=== PATIENT | male | born 1945 | race Two or more races ===

== ENCOUNTER 2017-10-04 12:35 | Emergency (ER) | payer MEDICARE ==
[2017-10-04 13:01] LABS: ADD MAN DIFF? NO
[2017-10-04 13:05] LABS: BASO # 0.1 x10^3/uL (0.0-0.2); BASO % 1 % (0-3); EOS # 0.1 x10^3/uL (0.0-0.7); EOS % 1 % (0-3); HEMATOCRIT 43.9 % (39.0-53.0); HEMOGLOBIN 15.1 g/dL (13.0-17.5); LYMPH % 27 % (24-48); MEAN CORPUSCULAR HEMOGLOBIN 32 pg (25-35); MEAN CORPUSCULAR HGB CONC 34 g/dL (31-37); MEAN CORPUSCULAR VOLUME 92 fL (79-100); MONO # 0.5 x10^3/uL (0.0-1.1); MONO % 7 % (0-9); NEUT # 4.8 x10^3uL (1.8-7.7); NEUT % 64 % (31-73); PLATELET COUNT 212 x10^3/uL (140-400); RED BLOOD COUNT 4.77 x10^6/uL (4.30-5.70); RED CELL DISTRIBUTION WIDTH 13.1 % (11.5-14.5); WHITE BLOOD COUNT 7.5 x10^3/uL (4.0-11.0)
[2017-10-04 13:15] LABS: INR 0.9 (0.8-1.1); PROTHROMBIN TIME PATIENT 11.9 SEC (11.7-14.0)
[2017-10-04 13:17] LABS: ANION GAP 8 (6-14); BLOOD UREA NITROGEN 20 mg/dL (8-26); BUN/CREATININE RATIO 20 (6-20); CALCIUM 8.5 mg/dL (8.5-10.1); CARBON DIOXIDE 26 mmol/L (21-32); CHLORIDE 101 mmol/L (98-107); GFR 73.2; GLUCOSE 261 mg/dL (70-99); POTASSIUM 4.8 mmol/L (3.5-5.1); SODIUM 135 mmol/L (136-145)
[2017-10-04 13:20] LABS: POC GLUCOSE 268 mg/dL (70-99)
[2017-10-04 13:23] LABS: ALBUMIN 3.1 g/dL (3.4-5.0); ALBUMIN/GLOBULIN RATIO 0.8 (1.0-1.7); ALK PHOS 126 U/L (46-116); MAGNESIUM 1.9 mg/dL (1.8-2.4); TOTAL BILIRUBIN 0.5 mg/dL (0.2-1.0); TOTAL PROTEIN 7.1 g/dL (6.4-8.2)
[2017-10-04 13:26] LABS: TROPONINI < 0.017 ng/mL (0.000-0.055)
[2017-10-04] MEDS: IV NORMAL SALINE 1000ML BAG 1,000 ML IV (13:29)
[2017-10-04 13:38] LABS: ALT (SGPT) 20 U/L (16-63); AST (SGOT) 19 U/L (15-37)
== END 2017-10-04 14:30 | disposition home or self-care (01) ==
LOC: ER 12:35
DX: R55 Syncope and collapse (principal); E11.9 Type 2 diabetes mellitus without complications; F10.20 Alcohol dependence, uncomplicated
CPT/HCPCS: 36415; 70450; 71045; 80053; 82962; 83735; 84484; 85025; 85610; 93005; 96360; 99285-25; J7030

== ENCOUNTER 2020-02-21 19:32 | Emergency (ER) | payer MEDICARE ==
[~2020-02-21] VITALS: Ht 170.2 cm; Wt 81.8 kg
[~2020-02-21 19:32] MED LIST: ASPI-482 PO; CLAR-7 PO; DOCU-109 PO; HYDR-2761 PO; IBUP200T44 PO; METF500T16 PO; TRAM-48 PO
[2020-02-21 20:03] VITALS: BP 134/71
--- NOTE | 2020-02-21 20:50 | PHYS DOC ---
Past Medical History Past Medical History: Diabetes-Type II Past Surgical History: Other Additional Past Surgical Histo: R TOE AMPUTATION Smoking Status: Never Smoker Alcohol Use: Occasionally Drug Use: None General Adult EDM: Chief Complaint: WOUND CHECK HPI: HPI: Patient is a 74 year old male who presents with no complaints. However patient does have a daughter at bedside who states the patient is diabetic and has sores on his feet that she is concerned about. The patient is not concerned about the sores on his feet. The patient's daughter reports that the patient is treated for his diabetes out of emergency rooms when his blood sugar is high and does not have a primary care physician managing his diabetic care nor his physical care outside of the emergency departments. The patient denies any fever or chills, exposure to or concerns of the COVID-19 virus. The patient denies any nasal congestion, cough, shortness of breath, chest pain, or swelling of his extremities. The patient denies any abdominal pains, nausea, vomiting, diarrhea , constipation, or blood in his stools. Patient denies any problems urinating, any polyuria, or polydipsia. The patient denies any back pain or pain in his joints, or rashes on his skin. The patient denies any headaches, focal weaknesses. The patient denies any swelling of his glands, any recent life changing events, depressions, anxiety, suicidal or homicidal ideation. Patient did however revealed that he feels like his vision has been getting worse over the years as he has become older, and also feels that his feet are sometimes numb although he cannot tell when there is no sensation to them. Review of Systems: Review of Systems: Constitutional: Denies fever or chills. Denies concern for or exposure to [place] VID-19 virus. Eyes: Reports that his vision has become worse over the years, but denies actual visual acuity problems. HENT: Denies nasal congestion or sore throat. Respiratory: Denies cough or shortness of breath. Cardiovascular: Denies chest pain or edema. GI: Denies abdominal pain, nausea, vomiting, bloody stools or diarrhea. : Denies dysuria. Musculoskeletal: Denies back pain or joint pain. Integument: Denies rash. Complains of sore to top of left foot. Neurologic: Denies headache, focal weakness or sensory changes. Endocrine: Denies polyuria or polydipsia. Lymphatic: Denies swollen glands. Psychiatric: Denies depression or anxiety. Denies homicidal or suicidal ideation Heart Score: Risk Factors: Risk Factors: DM, Current or recent (<one month) smoker, HTN, HLP, family history of CAD, obesity. Risk Scores: Score 0 - 3: 2.5% MACE over next 6 weeks - Discharge Home Score 4 - 6: 20.3% MACE over next 6 weeks - Admit for Clinical Observation Score 7 - 10: 72.7% MACE over next 6 weeks - Early Invasive Strategies Family History: Family History: Patient denies any family history significant to this visit. Current Medications: Per patient statement he is on no medications, however daughter states that he does or is supposed to take metformin 500 mg twice a day before each meal. Otherwise she is not sure he takes any other medications at home. Patient denies any allergies to medications. Allergies: Allergies: Allergies Coded Allergies Type Severity Reaction Last Updated Verified No Known Drug Allergies 12/31/14 No Physical Exam: PE: Constitutional: Well developed, well nourished, no acute distress, non-toxic appearance. HENT: Normocephalic, atraumatic, bilateral external ears normal, oropharynx moist, no oral exudates, nose normal. Poor dentition with dental caries without evidence of acute infectious process Eyes: PERRLA, EOMI, conjunctiva normal, no discharge. Pupils 3 mm. Lateral sclera of each eye has a pinguecula vs early pterygium. Neck: Normal range of motion, no tenderness, supple, no stridor. Cardiovascular:Heart rate regular rhythm, no murmur Lungs & Thorax: Bilateral breath sounds clear to auscultation Abdomen: Bowel sounds normal, soft, no tenderness, no masses, no pulsatile masses. Skin: Warm, dry, no erythema, no rash. Patient has well healing wound to top of left foot without drainage without bleeding skin intact. Back: No tenderness, no CVA tenderness. Extremities: No tenderness, no cyanosis, no clubbing, ROM intact, no edema. Neurologic: Alert and oriented X 3, normal motor function, normal sensory function, no focal deficits noted. Psychologic: Affect normal, judgement normal, mood normal. Current Patient Data: Labs: Laboratory Tests Test 02/21/20 19:41 Glucose (Fingerstick) 150 mg/dL (70-99) H Vital Signs: Vital Signs Date Time Temp Pulse Resp B/P (MAP) Pulse Ox O2 Delivery O2 Flow Rate FiO2 02/21/20 20:03 98.5 88 18 134/71 (92) 96 Room Air 98.5 EKG: EKG: [] Radiology/Procedures: Radiology/Procedures: [] Course & Med Decision Making: Course & Med Decision Making Pertinent Labs and Imaging studies reviewed. (See chart for details) 74-year-old patient arrives to the emergency department without complaints, however daughter was in room with concerns of her father's diabetes causing diabetic foot ulcers. During review of patient's history it was revealed that patient does not have a primary care physician or a place of cellularity to care for his physical health and diabetes care. The daughter states that the patient comes to the emergency department when he has out of his metformin or if he has episodes of elevated blood sugars at home. Patient's fingerstick blood sugar at ER triage was 150. Patient did not exhibit any acute processes that were concerning for further investigation. The patient did not appear interested in discussing his care. However while performing a physical examination with his daughter in the room I pointed out several concerns that need to be followed up with soon with both a primary care physician, a dentist, and ophthalmology. Both the patient and the patient's daughter gave verbal understanding of needing to follow-up with a primary health care physician, a dentist, and an quality assurance tester soon. Patient was given a institutional pamphlet with available primary care physician groups. Reviewed discharge instructions and return to emergency room precautions and concerns with patient and patient's daughter, both gave verbal understanding of this and had no further questions or concerns. Patient discharged home. Gricelda Disclaimer: Gricelda Disclaimer: This electronic medical record was generated, in whole or in part, using a voice recognition dictation system. Departure Departure Impression: Primary Impression: Encounter for medical screening examination Referrals: NO PCP (PCP) Additional Instructions: Please follow-up with 1 of the physician groups that were given to you in the clinic list pamphlet this week. Return to the emergency department for any worsening complaints or further concerns. It is very important that you follow- up with a physician to guide your diabetes care and other healthcare problems. Justicifation of Admission Dx: Justifications for Admission: Justification of Admission Dx: N/A ELHAM VILLALOBOS APRN Feb 21, 2020 20:50
== END 2020-02-21 20:55 | disposition home or self-care (01) ==
LOC: ER 19:32
DX: E11.621 Type 2 diabetes mellitus with foot ulcer (principal); Z98.890 Other specified postprocedural states
CPT/HCPCS: 82962; 99283

== ENCOUNTER 2020-06-02 19:29 | Emergency (ER) | payer MEDICARE ==
[~2020-06-02] VITALS: Ht 177.8 cm; Wt 86.4 kg
[2020-06-02] MEDS ORDERED: TETANUS AND DIPHTHERIA TOX/PF 0.5 ML DISP.SYRIN. VAX IM ONE (20:00)
--- NOTE | 2020-06-02 20:06 | PHYS DOC ---
Past Medical History Past Medical History: Diabetes-Type II Past Surgical History: Other Additional Past Surgical Histo: R TOE AMPUTATION Smoking Status: Never Smoker Alcohol Use: Occasionally Drug Use: None General Adult EDM: Chief Complaint: ABSCESS HPI: HPI: Patient is a 75 year old male who stepped on a nail through a rubber soled shoe on Saturday. Patient was able to pull the nail out but did not seek medical care at that time. Patient complains of moderate pain on the plantar aspect of the left foot that is worse with palpation and without range of motion. Patient denies any fever. Patient denies any focal neurological deficits. Review of Systems: Review of Systems: Constitutional: Denies fever or chills. [] Eyes: Denies change in visual acuity. [] HENT: Denies nasal congestion or sore throat. [] Respiratory: Denies cough or shortness of breath. [] Cardiovascular: Denies chest pain or edema. [] GI: Denies abdominal pain, nausea, vomiting, bloody stools or diarrhea. [] : Denies dysuria. [] Musculoskeletal: Denies back pain but has left foot pain. Integument: Denies rash. [] Neurologic: Denies headache, focal weakness or sensory changes. [] Endocrine: Denies polyuria or polydipsia. [] Lymphatic: Denies swollen glands. [] Psychiatric: Denies depression or anxiety. [] Heart Score: Risk Factors: Risk Factors: DM, Current or recent (<one month) smoker, HTN, HLP, family history of CAD, obesity. Risk Scores: Score 0 - 3: 2.5% MACE over next 6 weeks - Discharge Home Score 4 - 6: 20.3% MACE over next 6 weeks - Admit for Clinical Observation Score 7 - 10: 72.7% MACE over next 6 weeks - Early Invasive Strategies Current Medications: Current Medications Medications (Trade) Dose Ordered Sig/Glen Start Time Stop Time Status Last Admin Dose Admin Tetanus/ Diphtheria Toxoids (Tenivac Syringe) 0.5 ml ONCE ONCE 06/02/20 20:00 06/02/20 20:01 DC Allergies: Allergies: Allergies Coded Allergies Type Severity Reaction Last Updated Verified No Known Drug Allergies 12/31/14 No Physical Exam: PE: Constitutional: Well developed, well nourished, no acute distress, non-toxic appearance. [] HENT: Normocephalic, atraumatic, bilateral external ears normal, no trismus nose normal. [] Eyes: PERRLA, EOMI, conjunctiva normal, no discharge. [] Neck: Normal range of motion, no tenderness, supple, no stridor. [] Cardiovascular:Heart rate regular rhythm, peripheral pulses are intact, cap refill is brisk Lungs & Thorax: Bilateral breath sounds clear, no respiratory distress Abdomen: soft, no tenderness, no masses, no pulsatile masses. [] Skin: Warm, dry, no erythema, no rash. [] Back: No tenderness, no CVA tenderness. [] Extremities: Tenderness with mild swelling to the plantar aspect of the mid left foot. Minimal surrounding erythema without significant warmth, no purulent drainage, no fluctuance. Neurovascular intact distally. Neurologic: Alert and oriented X 3, normal motor function, normal sensory function, no focal deficits noted. [] Psychologic: Affect normal, judgement normal, mood normal. [] Current Patient Data: Vital Signs: Vital Signs Date Time Temp Pulse Resp B/P (MAP) Pulse Ox O2 Delivery O2 Flow Rate FiO2 06/02/20 19:45 98.6 81 18 180/96 (124) 95 Room Air 98.6 EKG: EKG: [] Radiology/Procedures: Radiology/Procedures: [][facility] [id number] [facility] [place], [place] [id number] IMAGING REPORT Signed PATIENT: ANDREW COHEN ACCOUNT: [id number] : 1945 LOCATION: ER AGE: 75 SEX: M EXAM STATUS: DEP ER ORD. PHYSICIAN: BONI PENA MD REASON: puncture PROCEDURE: FOOT LEFT 3V EXAM: FOOT LEFT 3V 06/02/2020 7:52 PM CLINICAL INDICATION:Puncture COMPARISON:None TECHNIQUE:3 views of the left foot FINDINGS:No acute fracture. Alignment is normal. Joint spaces are maintained. Small plantar calcaneal enthesophyte. No focal soft tissue abnormality or radiopaque foreign body. IMPRESSION:No acute abnormality. Electronically signed by: Isa Simons MD (06/02/2020 11:24 PM) [id number] DICTATED and SIGNED BY: ISA SIMONS MD DATE: 06/02/20 1856 Course & Med Decision Making: Course & Med Decision Making Pertinent Labs and Imaging studies reviewed. (See chart for details) [] Gricelda Disclaimer: Gricelda Disclaimer: This electronic medical record was generated, in whole or in part, using a voice recognition dictation system. Departure Departure Impression: Primary Impression: Puncture wound of left foot Disposition: 01 DC HOME SELF CARE/HOMELESS Referrals: NO PCP (PCP) TAMANNA CHAUDHRY MD Patient Instructions: Puncture Wound Additional Instructions: EMERGENCY DEPARTMENT GENERAL DISCHARGE INSTRUCTIONS THANK YOU for coming to [facility] Emergency Department (ED) today and trusting us with your care. We trust that you had a positive experience in our Emergency Department. If you wish to speak to the department Management you can contact the legal department manager at . YOUR FOLLOW UP INSTRUCTIONS ARE FOLLOWS: Do you have a private doctor? If you do not have a private doctor, please ask for a resource list of physicians or clinics that may be able to assist you with follow up care. The Emergency Physician has interpreted your x-rays. The X-ray specialist will also review them. If there is a change in the findings you will be notified in 48 hours when at all possible. A lab test or lab culture may have been done, your results will be reviewed and you will be notified if you need a change in treatment. ADDITIONAL INSTRUCTIONS AND INFORMATION Your care today has been supervised by a physician who is specially trained in emergency care. Many problems require more than one evaluation for a complete diagnosis and treatment. We recommend that you schedule your follow up appointment as recommended to ensure complete treatment of your illness or injury. If you are unable to obtain follow up care and continue to have a problem, or if your condition worsens we recommend that you return to the ED. We are not able to safely determine your condition over the phone nor are we able to give sound medical advice over the phone. For these safety reasons, if you call for medical advice we will ask you to come to the ED for further evaluation If you have any questions regarding these discharge instructions please call the ED at . SAFETY INFORMATION In the interest of safety, wellness, and injury prevention; we encourage you to wear your seatbelt, if you smoke; quit smoking, and we encourage your family to use protective helmet for bicycling and other sporting events that present an increased risk for head injury. IF YOUR SYMPTOMS WORSEN OR NEW SYMPTOMS DEVELOP, OR YOU HAVE CONCERNS ABOUT YOUR CONDITION; OR IF YOUR CONDITION WORSENS WHILE YOU ARE WAITING FOR YOUR FOLLOW UP APPOINTMENT; EITHER CONTACT YOUR PRIMARY CARE DOCTOR, THE PHYSICIAN WHOSE NAME AND NUMBER YOU WERE GIVEN, OR RETURN TO THE ED IMMEDIATELY. Scripts Hydrocodone/Apap 5-325 (NORCO 5-325 TABLET) 1 Each Tablet 1-2 EACH PO PRN Q6HRS PRN for PAIN, #15 as needed for pain Prov: BONI PENA MD 06/02/20 Ciprofloxacin Hcl (CIPROFLOXACIN HCL) 500 Mg Tablet 1 TAB PO BID for 10 Days, #20 TAB Prov: BONI PENA MD 06/02/20 Doxycycline Monohydrate (DOXYCYCLINE MONOHYDRATE) 100 Mg Capsule 1 CAP PO BID, #20 CAP Prov: BONI PENA MD 06/02/20 BONI PENA MD Jun 02, 2020 20:06
[2020-06-02] MEDS ORDERED: DOXYCYCLINE HYCLATE 100 MG TABLET PO ONE (20:30)
[2020-06-02] MEDS ORDERED: CIPROFLOXACIN HCL 250 MG TABLET. PO ONE ×2 (20:30→21:00)
[2020-06-02] MEDS ORDERED: CIPR500T PO (21:30)
[2020-06-02] MEDS ORDERED: DOXY100C14 PO (21:30)
[2020-06-02] MEDS ORDERED: HYDR-3164 PO (21:30)
[2020-06-02 21:48] VITALS: BP 147/72
--- NOTE | 2020-06-02 23:27 | RAD ---
EXAM: FOOT LEFT 3V 06/02/2020 7:52 PM CLINICAL INDICATION:Puncture COMPARISON:None TECHNIQUE:3 views of the left foot FINDINGS:No acute fracture. Alignment is normal. Joint spaces are maintained. Small plantar calcaneal enthesophyte. No focal soft tissue abnormality or radiopaque foreign body. IMPRESSION:No acute abnormality. Electronically signed by: Isa Simons MD (06/02/2020 11:24 PM) [id number]
== END 2020-06-02 21:55 | disposition home or self-care (01) ==
LOC: ER 19:29
DX: S91.332A Puncture wound without foreign body, left foot, initial encounter (principal); L53.9 Erythematous condition, unspecified; R60.0 Localized edema; E11.9 Type 2 diabetes mellitus without complications; Z98.890 Other specified postprocedural states; W22.8XXA Striking against or struck by other objects, initial encounter; Y93.89 Activity, other specified; Y92.89 Other specified places as the place of occurrence of the external cause; Y99.8 Other external cause status
CPT/HCPCS: 73630; 90471; 90714; 99285

== ENCOUNTER 2020-06-21 15:39 | Emergency (ER) | payer MEDICARE ==
[~2020-06-21] VITALS: Ht 172.7 cm; Wt 86.3 kg
[~2020-06-21 15:39] MED LIST changes: +CIPR500T PO; +DOXY100C14 PO; +HYDR-3164 PO
[2020-06-21 15:51] VITALS: BP 170/85
[2020-06-21] MEDS ORDERED: NAPROXEN 500 MG TABLET PO STA (16:08)
[2020-06-21] MEDS ORDERED: GABAPENTIN 300 MG CAPSULE. PO ONE (16:15)
--- NOTE | 2020-06-21 16:35 | RAD ---
3 views left foot AP lateral oblique views HISTORY: Medial pain The visualized osseous structures appear intact. There is plantar spurring of the calcaneus. Impression: No acute findings. Electronically signed by: Abe Matthews III, MD (06/21/2020 4:32 PM) [facility]
[2020-06-21] MEDS ORDERED: GABA300C18 PO (17:14)
--- NOTE | 2020-06-21 17:14 | PHYS DOC ---
Past Medical History Past Medical History: Diabetes-Type II Past Surgical History: Other Additional Past Surgical Histo: R TOE AMPUTATION Smoking Status: Never Smoker Alcohol Use: None Drug Use: None General Adult EDM: Chief Complaint: FOOT INJURY PAIN HPI: HPI: Patient is a 75 year old male with history of diabetes type 2 who presents to the ED today complaining of 7 out of 10 left medial foot pain that began today. Patient reports on May 30 2020 he stepped on a nail, he was seen in the ED, he had negative x-rays, was put on Cipro and doxycycline. He states he completed antibiotics. He states today he developed some pain on the left foot worse on weightbearing and decided to come to be seen. Denies anything alleviating the pain. Review of Systems: Review of Systems: Constitutional: Denies fever or chills. [] Musculoskeletal: Denies back pain or joint pain. [] Integument: Reports left medial foot pain Neurologic: Denies headache, focal weakness or sensory changes. [] Endocrine: Denies polyuria or polydipsia. [] Lymphatic: Denies swollen glands. [] Psychiatric: Denies depression or anxiety. [] Heart Score: Risk Factors: Risk Factors: DM, Current or recent (<one month) smoker, HTN, HLP, family history of CAD, obesity. Risk Scores: Score 0 - 3: 2.5% MACE over next 6 weeks - Discharge Home Score 4 - 6: 20.3% MACE over next 6 weeks - Admit for Clinical Observation Score 7 - 10: 72.7% MACE over next 6 weeks - Early Invasive Strategies Current Medications: Current Medications Medications (Trade) Dose Ordered Sig/Glen Start Time Stop Time Status Last Admin Dose Admin Gabapentin (Neurontin) 300 mg 1X ONCE 06/21/20 16:15 06/21/20 16:16 DC 06/21/20 16:55 300 MG Naproxen (Naprosyn) 500 mg 1X STAT 06/21/20 16:08 06/21/20 16:09 DC 06/21/20 16:55 500 MG Allergies: Allergies: Allergies Coded Allergies Type Severity Reaction Last Updated Verified No Known Drug Allergies 12/31/14 No Physical Exam: PE: Constitutional: Well developed, well nourished, no acute distress, non-toxic appearance. [] Skin: Left foot with no obvious deformity. Old healed puncture wound noted on the left foot mid ach with scarring, no drainage, no erythema, no tenderness in this region, the pain on patient's foot is on the left lateral midfoot. Full range of motion to the left foot. +2 left pedal pulse. Cap refill less than 2 seconds to left toes. Back: No tenderness, no CVA tenderness. [] Extremities: No tenderness, no cyanosis, no clubbing, ROM intact, no edema. [] Neurologic: Alert and oriented X 3, normal motor function, normal sensory function, no focal deficits noted. [] Psychologic: Affect normal, judgement normal, mood normal. [] Current Patient Data: Vital Signs: Vital Signs Date Time Temp Pulse Resp B/P (MAP) Pulse Ox O2 Delivery O2 Flow Rate FiO2 06/21/20 15:51 98.2 82 18 170/85 (113) 96 Room Air 98.2 EKG: EKG: [] Radiology/Procedures: Radiology/Procedures: []PROCEDURE: FOOT LEFT 3V 3 views left foot AP lateral oblique views HISTORY: Medial pain The visualized osseous structures appear intact. There is plantar spurring of the calcaneus. Impression: No acute findings. Electronically signed by: Tamanna Matthews III, MD (06/21/2020 4:32 PM) [facility] DICTATED and SIGNED BY: TAMANNA MATTHEWS III, MD DATE: 06/21/20 [id number] Course & Med Decision Making: Course & Med Decision Making Pertinent Labs and Imaging studies reviewed. (See chart for details) This is a 75-year-old male patient presented to the ED today with left foot pain, patient stepped on a nail a on May 30, 2020, was already seen in the ED, had a negative x-ray, was sent home on antibiotics which she completed. The pain on the foot is not anywhere close to this puncture wound site. There is no signs of infection on the puncture wound. Left foot x-rays are negative for any acute findings. With hx of DM II he likely has neuropathy. Discharged home on gabapentin and instructed to ice the extremity, elevate and follow-up with the primary care doctor next week Gricelda Disclaimer: Gricelda Disclaimer: This electronic medical record was generated, in whole or in part, using a voice recognition dictation system. Departure Departure Impression: Primary Impression: Left foot pain Additional Impression: Neuropathy Disposition: 01 DC HOME SELF CARE/HOMELESS Referrals: UNKNOWN PCP NAME (PCP) follow up with your doctor in 1-2 weeks Patient Instructions: Diabetic Neuropathy Additional Instructions: You were seen for left foot pain, left foot x-rays are negative for any acute findings. Try to ice and elevate the extremity, take the prescribed medications as ordered and follow-up with your doctor next week Scripts Gabapentin (GABAPENTIN ) 300 Mg Capsule 300 MG PO TID for NEUROGENIC PAIN, #30 CAP Prov: WILLIE LUCERO APRN 06/21/20 WILLIE LUCERO APRN Jun 21, 2020 17:14
== END 2020-06-21 17:31 | disposition home or self-care (01) ==
LOC: ER 15:39
DX: M79.672 Pain in left foot (principal); G62.9 Polyneuropathy, unspecified; E11.9 Type 2 diabetes mellitus without complications; Z98.890 Other specified postprocedural states
CPT/HCPCS: 73630; 99283

== ENCOUNTER → 2021-07-19 | Outpatient (CLI) | payer MEDICARE ==
[~2021-07-19] MED LIST changes: -CIPR500T PO; +CIPR500T2 PO; +DOXY-181 PO; -DOXY100C14 PO; +GABA300C18 PO
--- NOTE | 2021-07-19 16:21 | KCIC ---
EXAM: Right shoulder, 3 views. HISTORY: Pain. COMPARISON: None. FINDINGS: 3 views of the right shoulder obtained. There is no fracture, dislocation or subluxation. IMPRESSION: No acute osseous finding. Electronically signed by: Rupinder Minor MD (07/19/2021 4:18 PM) [id number]
== END ==
LOC: KCIC 15:40
PROVIDERS: ATTEND Family Medicine
DX: M25.511 Pain in right shoulder (principal)
CPT/HCPCS: 73030